=== PATIENT | male | born 1990 | race Caucasian/White ===

== ENCOUNTER 2020-06-14 10:43 | Emergency (ER) | payer OTHER ==
[~2020-06-14] VITALS: Ht 185.4 cm; Wt 85.7 kg
[~2020-06-14 10:43] MED LIST: COLACE100 MG PO; ZOFRAN ODT4 MG PO
[2020-06-14] MEDS ORDERED: BACTRIM DS TAB1 EACH PO (13:45)
[2020-06-14] MEDS ORDERED: ZOFRAN4 MG PO (13:45)
== END 2020-06-14 14:12 | disposition home or self-care (01) ==
LOC: ED 10:43
DX: N41.9 Inflammatory disease of prostate, unspecified (principal)
CPT/HCPCS: 36415; 74176; 80053; 81001; 83690; 85025; 99284-25

== ENCOUNTER 2023-12-16 11:34 | Emergency (ER) | payer OTHER ==
[~2023-12-16] VITALS: Ht 185.4 cm; Wt 84.0 kg
[~2023-12-16 11:34] MED LIST changes: +BACTRIM DS TAB1 EACH PO; +ZOFRAN4 MG PO
[2023-12-16] MEDS ORDERED: CIPROFLOXACIN500 MG PO (11:50)
[2023-12-16] MEDS ORDERED: MONTELUKAST SOD10 MG PO (11:50)
[2023-12-16 11:59] LABS: BASOPHILS 1.6 % (0-2); EOSINOPHILS 7.1 % (0-6); HEMATOCRIT 44.1 % (35.0-50.0); HEMOGLOBIN 14.5 g/dL (12.0-18.0); LYMPHOCYTES 36.3 % (24-44); MCH 31.2 (27-36); MCHC 32.8 g/dl (30-36); MCV 95.1 fl (81-99); MONOCYTES 11.4 % (0-12); NEUTROPHILS 43.6 % (39-80); PLATELET COUNT 236 K/uL (140-440); RBC 4.64 M/ul (4.3-5.7); RDW 13.4 (10.5-15.0)
[2023-12-16 12:10] LABS: ALBUMIN 3.6 g/dL (3.4-5.0); ALBUMIN/GLOBULIN RATIO 0.92 (1.1-2.4); ANION GAP 12.3 (7-21); BILIRUBIN, TOTAL 1.6 ng/dL (0.2-1.0); BUN/CREATININE RATIO 25.67 (6.0-28.6); CALCIUM 8.5 mg/dL (8.5-10.1); CREATININE, SERUM 0.74 mg/dL (0.70-1.30); POTASSIUM 4.3 mmol/L (3.5-5.1); PROTEIN, TOTAL 7.5 g/dL (6.4-8.2)
[2023-12-16 13:39] LABS: BILIRUBIN, URINE NEGATIVE (negative); BLOOD/HGB, URINE NEGATIVE (Negative); KETONE, URINE NEGATIVE (Negative); LEUK ESTERASE, URINE NEGATIVE (negative); NITRITE, URINE NEGATIVE (negative); PH, URINE 7.5 (5-7)
[2023-12-16 14:15] VITALS: BP 120/77
== END 2023-12-16 14:15 | disposition home or self-care (01) ==
LOC: ED 11:34
PROVIDERS: Emergency Medicine
DX: K42.9 Umbilical hernia without obstruction or gangrene (principal)
CPT/HCPCS: 36415; 80053; 81003; 83690; 85025; 99284

== ENCOUNTER 2024-02-04 06:35 | Day surgery (SDC) | payer OTHER ==
[2024-02-01 09:36] VITALS: BP 99/61
[~2024-02-04] VITALS: Ht 185.4 cm; Wt 86.4 kg
[~2024-02-04 06:35] MED LIST changes: +ALL DAY ALLERGY10 M4 PO; +CIPROFLOXACIN500 MG PO; +FLONASE SENSIM5.9 ML NS; +LACTATED RINGER'S 1,000 ML IV SCH; +MONTELUKAST SOD10 MG PO
[2024-02-04] MEDS ORDERED: BUPIVACAINE HCL 0.25% 50 ML MDV ONE (06:38)
[2024-02-04] MEDS ORDERED: LIDOCAINE HCL 1% 30 ML SDV ONE (06:38)
[2024-02-04 06:48] VITALS: BP 115/64
[2024-02-04] MEDS ORDERED: CEFAZOLIN SODIUM 2 GM/20 ML SYR IV SCH (07:00)
[2024-02-04] MEDS ORDERED: IBLOOD GLUCOSE TEST STRIP 1 EA TEST VI PRN (07:00)
[2024-02-04] MEDS ORDERED: HEParin SOD (PORCINE) 5,000 UNIT/0.5 ML SYR SUB-Q SCH (07:00)
[2024-02-04] MEDS ORDERED: LIDOCAINE HCL 1% 5 ML SDV INJ ONE (07:00)
[2024-02-04] MEDS ORDERED: ondansetron HCL 4 MG/2 ML VIAL ONE (07:17)
[2024-02-04] MEDS ORDERED: propofoL 200 MG/20 ML VIAL ONE (07:17)
[2024-02-04] MEDS ORDERED: KETOROLAC TROMETHAMINE 30 MG/ML VIAL ONE (07:17)
[2024-02-04] MEDS ORDERED: DEXAMETHASONE SOD PHOS 4 MG/ML VIAL ONE (07:17)
[2024-02-04] MEDS ORDERED: MIDAZOLAM HCL 2 MG/2 ML VIAL ONE (07:17)
[2024-02-04] MEDS ORDERED: LIDOCAINE HCL 2% 5 ML SDV ONE (07:17)
[2024-02-04] MEDS ORDERED: fentaNYL citrate 100 MCG/2 ML VIAL ONE ×2 (07:17→07:50)
--- NOTE | 2024-02-04 08:40 | NUR ---
02/04/24 0840 Sheets,Yanelis 0899 PT ARRIVED TO PACU WITH ORAL AIRWAY IN PLACE, RESP RATE DECREASED AND 8L VIA MASK IN PLACE, O2 DECREASED TO 6L AND JAW THRUST USED TO MAINTAIN AIRWAY. PT NONAROUSABLE.
[2024-02-04] MEDS ORDERED: PROCHLORPERAZINE EDISYLATE 10 MG/2 ML VIAL IV PRN (08:45)
[2024-02-04] MEDS ORDERED: NALOXONE HCL 0.4 MG SYR IV PRN ×2 (08:45→09:30)
[2024-02-04] MEDS ORDERED: HYDROCODONE/ACETA 5/325 TAB PO PRN (08:45)
[2024-02-04] MEDS ORDERED: HYDROmorphone HCL 1 MG/ML SYR IV PRN ×2 (08:45→09:30)
[2024-02-04] MEDS ORDERED: ondansetron HCL 4 MG/2 ML VIAL IV PRN ×2 (08:45→09:30)
[2024-02-04] MEDS ORDERED: ACETAMINOPHEN 1,000 MG/100 ML VIAL IV ONE (09:00)
[2024-02-04] MEDS ORDERED: fentaNYL citrate 50 MCG/ML SDV ONE (09:05)
[2024-02-04] MEDS ORDERED: fentaNYL citrate 50 MCG/ML SDV IV PRN (09:30)
[2024-02-04] MEDS ORDERED: MEPERIDINE HCL 25 MG/1 ML VIAL IV PRN (09:30)
[2024-02-04 09:40] VITALS: BP 114/65
--- NOTE | 2024-02-04 09:43 | NUR ---
ZHANNA 0940: PT IS BACK TO DS FROM PACU, HE IS SLEEPY, BUT EASILY AROUSABLE AND RESPONDS APPROPRIATELY. FAMILY IS AT THE BEDSIDE. CALL LIGHT WITHIN REACH. WATER ON BEDSIDE TABLE, HE IS TOLERATING SIPS OF WATER. HE WOULD LIKE SALINTES TO SNACK ON. DC CRITIERIA IS REVIEWED WITH PT AND FAMILY. NO ADDITIONAL NEEDS OR CONCERNS AT THIS TIME.
--- NOTE | 2024-02-04 09:58 | OR ---
[facility] [address], [place] [address] Signed DATE OF OPERATION: 02/04/2024 SURGEON: Joaquim Escoto MD PREOPERATIVE DIAGNOSIS: Incarcerated umbilical hernia (15 mm). POSTOPERATIVE DIAGNOSIS: Incarcerated umbilical hernia (15 mm). PROCEDURE: Primary umbilical herniorrhaphy with intra-abdominal round 6.4 cm Ventralex mesh. ESTIMATED BLOOD LOSS: None. INDICATIONS: Joan is a 33-year-old gentleman, asked to see me for his incarcerated umbilical hernia. 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 He said he is having a lot of pain and it makes him dizzy. It puts him at a disadvantage on the prisoners. He also likes to exercise on a regular basis to stay in shape. He said it has been very painful. He said he used to be able to reduce the hernia, but now he is unable to reduce the hernia. His primary care provider asked him to come see me as a local general surgeon. In the office, I gave Joan a booklet on hernias. We looked at it page by page with respect to his umbilical hernia. He understands the difference between a primary suture repair and a mesh repair. There is risk including, but not limited to bleeding, infection, scarring, change in contour of the skin, damage to bowel, infection of mesh requiring removal of recurrent hernias and chronic pain. He had expressed understanding and wished to proceed. PROCEDURE IN DETAIL: I met with Joan and his yosephe along with his daughter in our preop area. We all agreed on his umbilical hernia. We marked that appropriately. After this, Joan was taken into the operating room and placed in the supine position under general LMA anesthesia. He was given preoperative antibiotics along with subcutaneous heparin. SCDs were utilized. He was then prepped and draped in the usual sterile fashion. A standard transverse infraumbilical incision was made and carried down around the umbilicus bluntly and with the cautery. We the umbilicus from the fascial defect with the help of cautery. The omentum was reduced but we realized he actually Electronically Signed By: JOAQUIM ESCOTO MD 02/04/24 0958 PATIENT NAME: JOAN VIVAS OPERATIVE REPORT DATE OF : 88 REPORT #: [id number] PHYSICIAN: JOAQUIM ESCOTO MD PCP: ACE ORTIZ PA-C REPORT IS CONFIDENTIAL AND NOT TO BE RELEASED WITHOUT AUTHORIZATION [facility] [address], [place] [address] Signed had herniated his preperitoneal fat along with the falciform ligament. We tied off the falciform ligament with an 0 Vicryl suture. The rest of it was amputated with the help of the cautery. The fascial defect was 15 mm in diameter. Therefore, we chose our 6.4 cm round Ventralex mesh, we placed it in the abdomen, brought up and flushed against the posterior abdominal wall. It was held in place transversely with interrupted [id number] #1 Prolene sutures. Several passes of the suture went through the tab on the mesh to help keep it in place. Local anesthetic was injected in the abdominal wall. The umbilical skin was brought back down to the midline fascia with an interrupted 2-0 PDS suture. The wound was irrigated and suctioned out until clear. We closed the dermis with interrupted 3-0 subcuticular Monocryl sutures. The skin edges were brought together with inch Steri-Strips and Mastisol. Dry gauze and tape was then applied. After this, Joan was awakened from his anesthesia, extubated in the OR, and taken to the recovery room in stable condition. Joaquim Escoto MD ALB/MODL /[id number] cc: CHAZ Richard MD Copies: ACE ORTIZ PA-C, ANDREW L MD ~ Electronically Signed By: JOAQUIM ESCOTO MD 02/04/24 0958 PATIENT NAME: JOAN VIVAS OPERATIVE REPORT DATE OF : 88 REPORT #: [id number] PHYSICIAN: JOAQUIM ESCOTO MD PCP: ACE ORTIZ PA-C REPORT IS CONFIDENTIAL AND NOT TO BE RELEASED WITHOUT AUTHORIZATION
--- NOTE | 2024-02-04 10:42 | NUR ---
LE 1034: PT'S FIANCE COMES OUT AND REPORTS THE PT WOULD LIKE TO GET UP TO GO TO THE BATHROOM. PT IS ASSISTED TO THE EDGE OF THE BED, WHERE HE REPORTS DIZZINESS. HE SITS UNTIL IT PASSES AND THEN IS HELPED TO A STANDING POSITION, WHERE AGAIN HE REPORTS SOME DIZZINESS, BUT TOLERABLE TO WALK. LE 1038: PT WALKS WITH STAND BY ASSIST TO THE BATHROOM WHERE IS HE IS ABLE TO VOID 275MLS OF DARK YELLOW URINE. LE 1041: PT INDICATES THAT HE WOULD LIKE TO GO HOME. HE IS EDUCATED ON HOW TO BEST DRESS HIMSELF AND TO OPEN HIS CURTAIN WHEN READY.
[2024-02-04 10:47] VITALS: BP 127/73
--- NOTE | 2024-02-04 11:03 | NUR ---
LE 1050: PT REPORTS PAIN A 7/10, HE IS OFFERED A PAIN PILL AND EDUCATED HE WILL NEED TO STAY AN ADDITIONAL 30 MINUTES TO MAKES SURE HE DOES NOT GET NAUSEATED OR VOMITS. HE DECLINES, STATING HE DOESN'T WANT TO WAIT IN HERE. PT AND YOGESH ARE GIVEN WRITTEN AND VERBAL DC INSTRUCTIONS. THEY BOTH VERBALIZE UNDERSTANDING. NO QUESTIONS ARE ASKED. LE 1055: PT IS TAKEN TO PERSONAL VEHICLE VIA WC. HE IS ABLE TO TRANSFER HIMSELF WITHOUT ISSUES.
== END 2024-02-04 10:55 | disposition home or self-care (01) ==
LOC: DS 06:35
PROVIDERS: ATTEND Colon & Rectal Surgery
PROC: 0WUF0JZ Supplement Abdominal Wall with Synthetic Substitute, Open Approach (ICD-10-PCS; principal; 2024-02-04 10:30)
DX: K42.0 Umbilical hernia with obstruction, without gangrene (principal); Z88.8 Allergy status to other drugs, medicaments and biological substances
CPT/HCPCS: 00750; 96372; C1781; J0131; J0690; J1100; J1170; J1644; J1885; J2001; J2250; J2405; J2704; J3010; J7121